=== PATIENT | male | born 1960 | race Caucasian/White ===

== ENCOUNTER 2018-08-20 20:29 | Inpatient (IN) | payer BC, OTHER ==
[2018-08-20] MEDS ORDERED: cloNIDine HCL 0.1 MG TABLET PO ONE (20:50)
[2018-08-20] MEDS ORDERED: VANCOMYCIN 1 GM in D5W (PRE-DOCKED) 1,000 MG/250 ML IVPB ONE (20:52)
[2018-08-20] MEDS ORDERED: cloNIDine HCL 0.1 MG TABLET ONE (20:55)
[2018-08-20] MEDS ORDERED: PIPERACILLIN/TAZOB 3.375 GM 3.375 GM in DEXTROSE 5%-WATER - 50 ML IVPB ONE (20:55)
[2018-08-20] MEDS ORDERED: VANCOMYCIN 1,000 MG VIAL (RESTRICTED TO ID ONLY) ONE (20:57)
[2018-08-20] MEDS ORDERED: PIPERACILLIN/TAZOBACTAM 3.375 GM VIAL IVPB ONE (20:58)
[2018-08-20 21:27] LABS: EOS % 3.3 % (0-4.5); HEMATOCRIT 36.7 % (35.4-49); HEMOGLOBIN 12.2 GM/dl (11.7-16.9); LYMPH % 18.5 % (8-40); MCH 27.8 pg (25.7-33.7); MCHC 33.1 g/dl (32.0-35.9); MEAN CELL VOLUME 83.9 fl (80-96); MEAN PLT VOLUME 8.8 fl (7.5-11.1); MONO % 8.8 % (3.8-10.2); NEUT % 68.4 % (42.8-82.8); PLATELET COUNT 230 K/MM3 (134-434); RBC 4.37 M/mm3 (4.00-5.60); RDW 14.7 % (11.9-15.9); WHITE BLOOD COUNT 9.3 K/mm3 (4.0-10.8)
--- NOTE | 2018-08-20 21:37 | PDOC ---
Documentation entered by Davon Leyva SCRIBE, acting as scribe for Madelin Mcneil MD. Madelin Mcneil MD: This documentation has been prepared by the Autumn ledesma Nirvannie, SCRIBE, under my direction and personally reviewed by me in its entirety. I confirm that the documentation accurately reflects all work, treatment, procedures, and medical decision making performed by me. History of Present Illness - General Chief Complaint: Redness To Affected Area Stated Complaint: LT 1ST TOE CELLULITIS Time Seen by Provider: 08/20/18 20:34 History Source: Patient Exam Limitations: No Limitations - History of Present Illness Initial Comments: 08/20/18 21:15 HPI: The patient is a 58 year old male, with a significant past medical history of hypertension (noncompliant with medications), CVA (16), and OCD, who presents to the emergency department with, 1 month of worsening swelling and redness to the left great toe with new onset of white discharge. As per patient, approximately a month ago he cut his left great toe at which time he kept it wrapped applying Neosporin to the affected area, however, his symptoms persisted with associated white purulent discharge. Patient also notes milder swelling, redness, and minimal discharge to the right great toe. Patient endorses a history of osteomyelitis to the left great toe requiring IV antibiotics and wound care. Patient was seen in urgent care prior to his arrival at which time he was advised to report to the ED for further evaluation. He denies any change in strength or sensation to the bilateral lower extremities. He denies any recent fevers, chills, headache or dizziness. He denies any recent nausea, vomit, diarrhea or constipation. He denies any recent chest pain or shortness of breath. He denies any recent dysuria, frequency, urgency or hematuria. 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 MEDICATIONS: reviewed ALLERGIES: As per nursing notes ROS: General: No fevers or chills, no weakness, no weight loss HEENT: No change in vision. No sore throat,. No ear pain CardioVascular: No chest pain or shortness of breath Respiratory:No cough, or wheezing. Gastrointestinal: no nausea, vomiting, diarrhea or constipation, No rectal bleeding Genitourinary: No dysuria, hematuria, or frequency Musculoskeletal: No joint or muscle pain or swelling Neurologic: No headache, vertigo, dizziness or loss of consciousness Psychiatric: nor depression Skin:+Right and left great toe swelling and redness. Endocrine: no increased thirst or abnormal weight change Allergic: no skin or latex allergy All other systems reviewed and normal Physical Exam: GENERAL: The patient is awake, alert, and fully oriented, in no acute distress. HEAD: Normal with no signs of trauma. EYES: Pupils equal, round and reactive to light, extraocular movements intact, sclera anicteric, conjunctiva clear. EXTREMITIES: Normal range of motion. NEUROLOGICAL: Normal speech, normal gait. PSYCH: Normal mood, normal affect. SKIN: Left foot: Plantar: 1cm skin opening with purulent discharge and necrotic tissue. No ascending lymphangitis, calf swelling, or calf redness. Marked swelling and erythema just above the ankle. Right foot: Erythema and swelling to the primarily to the distal and right great toe, small wound with minimal purulent discharge. No tenderness. 08/20/18 21:52 Assessment and plan: This is a 58-year-old male who has history of osteomyelitis of his left great toe. Patient job requires that he wears boots and he said that he sweats a lot and has chronic breakdown of the skin on the plantar surface of the great toes. Patient has subsequently developed bilateral cellulitis secondary to infections in the great toe. Left is greater than right. Patient's left foot is markedly swollen with erythema and no evidence of ascending lymphangitis to right foot is mildly red hot and swollen. Patient given vancomycin and Zosyn and a workup was obtained patient. Patient's EKG showed normal sinus rhythm at a rate of 90 there is evidence of LVH and septal infarct otherwise no acute pathology Patient's text x-ray was negative for any acute pathology Patient admitted to the hospital for IV antibiotics Past History - Past Medical History Allergies/Adverse Reactions: Allergies Allergy/AdvReac Type Severity Reaction Status Date / Time No Known Allergies Allergy Verified 10/11/15 00:17 Home Medications: Ambulatory Orders Paroxetine HCl 60 mg PO DAILY 10/11/15 CVA: Yes COPD: No HTN: Yes Psychiatric Problems: Yes (OCD) - Suicide/Smoking/Psychosocial Hx Smoking History: Never smoked Have you smoked in the past 12 months: No Hx Alcohol Use: No Drug/Substance Use Hx: No Substance Use Type: None *Physical Exam - Vital Signs Last Vital Signs Temp Pulse Resp BP Pulse Ox 99.2 F 90 16 211/116 H 99 08/20/18 20:33 08/20/18 20:33 08/20/18 20:33 08/20/18 20:33 08/20/18 20:33 ED Treatment Course - LABORATORY CBC & Chemistry Diagram: 08/20/18 21:05 08/20/18 21:05 *DC/Admit/Observation/Transfer Diagnosis at time of Disposition: Cellulitis of both feet - Discharge Dispostion Condition at time of disposition: Stable Decision to Admit order: Yes - Referrals - Patient Instructions - Post Discharge Activity
[2018-08-20 21:41] LABS: ALBUMIN 3.7 g/dl (3.4-5.0); ALK PHOS 79 U/L (45-117); ANION GAP 9 MMOL/L (8-16); BILIRUBIN,TOTAL 0.6 mg/dl (0.2-1); BLOOD UREA NITROGEN 21 mg/dl (7-18); CALCIUM 8.8 mg/dl (8.5-10); CHLORIDE 103 mmol/L (98-107); CO2 24 mmol/L (21-32); GLUCOSE,RANDOM 112 mg/dl (74-106); SGOT/AST 23 U/L (15-37); SGPT/ALT 19 U/L (13-61); SODIUM 136 mmol/L (136-145); TOT PROT 7.1 g/dl (6.4-8.2)
--- NOTE | 2018-08-20 22:11 | HP ---
Admitting History and Physical - Primary Care Physician PCP: None - Admission Chief Complaint: Non-healing Toe Wounds History of Present Illness: This is a 58 y/o man PMHx of HTN (non-complaint), Osteomyelitis of L- Toe. CVA ( 2016), OCD. Who presents to the ED with swelling, erythema and white discharge to L- great toe, R- great toe with new swelling and erythema. Patient has been treating it with neosporin and bandaids x 1 month. Patient reports increased pain to both toes when ambulating. Patient denies fever, chills, cough, SOB, CP , palpitations, N/V/D, constipation, dysuria. 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 History of Recent Travel: No Home Medications - Allergies Allergies/Adverse Reactions: Allergies Allergy/AdvReac Type Severity Reaction Status Date / Time No Known Allergies Allergy Verified 10/11/15 00:17 - Home Medications Home Medications: Ambulatory Orders Paroxetine HCl 60 mg PO DAILY 10/11/15 Family Disease History - Family Disease History Family Disease History: Heart Disease: Father (Stroke), CA: Mother (Renal, Lymphoma- ), Other: Sister (Asthma) Review of Systems - Review of Systems Constitutional: reports: No Symptoms Eyes: reports: No Symptoms HENT: reports: No Symptoms Neck: reports: No Symptoms Cardiovascular: reports: No Symptoms Respiratory: reports: No Symptoms Gastrointestinal: reports: No Symptoms Genitourinary: reports: No Symptoms Breasts: reports: No Symptoms Reported Musculoskeletal: reports: Extremity Pain Integumentary: reports: Erythema, Wound Neurological: reports: No Symptoms Endocrine: reports: No Symptoms Hematology/Lymphatic: reports: No Symptoms Psychiatric: reports: No Symptoms Physical Examination Vital Signs: Vital Signs Temperature 99.2 F 08/20/18 20:33 Pulse Rate 90 08/20/18 20:33 Respiratory Rate 16 08/20/18 20:33 Blood Pressure 211/116 H 08/20/18 20:33 O2 Sat by Pulse Oximetry (%) 99 08/20/18 20:33 Constitutional: Yes: Well Nourished, No Distress, Calm, Obese Eyes: Yes: WNL, Conjunctiva Clear, EOM Intact, PERRL HENT: Yes: WNL, Atraumatic, Normocephalic Neck: Yes: WNL, Supple, Trachea Midline Cardiovascular: Yes: WNL, Regular Rate and Rhythm, S1, S2 Respiratory: Yes: WNL, Regular, CTA Bilaterally Gastrointestinal: Yes: WNL, Normal Bowel Sounds, Soft, Abdomen, Obese Renal/: Yes: WNL Breast(s): Yes: WNL Extremities: Yes: Erythema Edema: Yes Edema: LLE: 2+ (pitting to left foot, great toe), RLE: 1+ (right great toe) Peripheral Pulses WNL: Yes Integumentary: Yes: Erythema (right great toe, left great toe, left foot), Pressure Ulcer (left great toe) Wound/Incision: Yes: Reddened, Other Neurological: Yes: WNL, Alert, Oriented, Cran Nerves II-XII Intact ...Motor Strength: WNL Psychiatric: Yes: WNL, Alert, Oriented Labs: CBC, BMP 08/20/18 21:05 08/20/18 21:05 Imaging - Results Chest X-ray: Image Reviewed X-ray: Pending Problem List - Problems (1) Hypertensive urgency Assessment/Plan: Likely secondary to non-compliance Clonidine given in ED with improvement Appreciate Cardiology consult Will start on ACEi and Thiazide per [facility] 8 Renal US r/o stenosis Continue cardiac monitoring Low Na Diet Monitor CBC, BMP Code(s): I16.0 - HYPERTENSIVE URGENCY (2) HTN (hypertension) Assessment/Plan: not controlled Will start on ACEi and Thiazide Monitor BMP Code(s): I10 - ESSENTIAL (PRIMARY) HYPERTENSION (3) Cellulitis of both feet Assessment/Plan: Wound culture-pending Blood culture-pending No WBC Will order ESR, CRP Vancomycin and Zosyn given in ED, will continue Appreciate ID consult Appreciate Podiatry consult Consider Vascular and Surgical consult if condition worsens Monitor CBC, BMP Monitor vitals Elevate extremity Code(s): L03.115 - CELLULITIS OF RIGHT LOWER LIMB; L03.116 - CELLULITIS OF LEFT LOWER LIMB (4) Chronic ulcer of great toe of left foot with fat layer exposed Assessment/Plan: See above Code(s): L97.522 - NON-PRS CHRONIC ULCER OTH PRT LEFT FOOT W FAT LAYER EXPOSED (5) Obsessive compulsive disorder Assessment/Plan: Continue Paxil Code(s): F42 - OBSESSIVE-COMPULSIVE DISORDER * DO NOT USE * (6) Obese Assessment/Plan: Counseled on weight reduction Code(s): E66.9 - OBESITY, UNSPECIFIED Assessment/Plan This is a 58 y/o man with a PMHx of HTN (non-compliant with meds), Osteomyelitis of L- Great Toe, OCD. Admitted to Telemetry for Hypertension Urgency, Cellulitis of Bilateral Toes for further evaluation of their emergent condition. Plan: See Problem List FEN PO fluids as tolerated Replete lytes as indicated Low Na Diet DVT ppx OOB SCDs Heparin SQ Code Status: Full Code Dispo: Requires Inpatient Care Visit type - Emergency Visit Emergency Visit: Yes ED Registration Date: 08/20/18 Care time: The patient presented to the Emergency Department on the above date and was hospitalized for further evaluation of their emergent condition. - New Patient This patient is new to me today: Yes Date on this admission: 08/20/18 - Critical Care Critical Care patient: No
[2018-08-20 23:49] VITALS: BMI 32.8
[2018-08-21] MEDS ORDERED: PIPERACILLIN/TAZOBACTAM 3.375 GM VIAL IVPB ONE ×3 (04:05→21:05)
[2018-08-21] MEDS ORDERED: DEXTROSE 5%-WATER - 50 ML IVPB ONE ×3 (04:06→21:05)
[2018-08-21] MEDS: PIPERACILLIN/TAZOB 3.375 GM 3.375 GM in DEXTROSE 5%-WATER - 50 ML IVPB SCH ×3 (04:34→21:16)
[2018-08-21] MEDS ORDERED: PIPERACILLIN/TAZOB 3.375 GM 3.375 GM in DEXTROSE 5%-WATER - 50 ML IVPB SCH (05:00)
--- NOTE | 2018-08-21 07:25 | PN ---
Progress Note, Physician Chief Complaint: No new complains History of Present Illness: 58 year old male, with a significant past medical history of hypertension ( noncompliant with medications), CVA (16), and OCD, who presents to the emergency department with, 1 month of worsening swelling and redness to the left great toe with new onset of white discharge. As per patient, approximately a month ago he cut his left great toe at which time he kept it wrapped applying Neosporin to the affected area, however, his symptoms persisted with associated white purulent discharge. - Current Medication List Current Medications: Active Medications Heparin Sodium (Porcine) (Heparin -) 5,000 unit SQ BID [facility] Hydrochlorothiazide (Hctz -) 12.5 mg PO DAILY [facility] Vancomycin HCl 1,250 mg/ (Dextrose) 250 mls @ 250 mls/2 hr IVPB Q24H [facility]; Protocol Piperacillin Sod/Tazobactam (Sod 3.375 gm/ Dextrose) 50 mls @ 100 mls/hr IVPB Q8H-IV [facility]; Protocol Piperacillin Sod/Tazobactam (Sod 3.375 gm/ Dextrose) 50 mls @ 100 mls/hr IVPB Q8H [facility] Stop: 08/21/18 13:29 Last Admin: 08/21/18 04:34 Dose: 100 mls/hr Lisinopril (Prinivil) 5 mg PO DAILY [facility] Paroxetine HCl (Paxil -) 20 mg PO TID [facility] - Objective Vital Signs: Vital Signs Temperature 97.7 F 08/21/18 06:00 Pulse Rate 78 08/21/18 06:00 Respiratory Rate 19 08/21/18 06:00 Blood Pressure 169/86 08/21/18 06:00 O2 Sat by Pulse Oximetry (%) 99 08/21/18 06:34 Middle aged man comfortable not in distress HEENT: WNL, Conjunctiva Clear, EOM Intact, PERRLA Neck: Yes: WNL, Supple, Trachea Midline Cardiovascular: L, Regular Rate and Rhythm, S1, S2 Respiratory:WNL, Regular, CTA Bilaterally Gastrointestinal: YWNL, Normal Bowel Sounds, Soft, Abdomen, Obese Extremities: No edema feet, no calf tenderness P LLE: 2+ (pitting to left foot, great toe), RLE: 1+ (right great toe), Pulses + Neurological: Yes: WNL, Alert, Oriented, Cran Nerves II-XII Intact, no gross deficit Labs: CBC,CMP WBC 9.3 K/mm3 (4.0-10.8) 08/20/18 21:05 RBC 4.37 M/mm3 (4.00-5.60) 08/20/18 21:05 Hgb 12.2 GM/dl (11.7-16.9) 08/20/18 21:05 Hct 36.7 % (35.4-49) 08/20/18 21:05 MCV 83.9 fl (80-96) 08/20/18 21:05 MCH 27.8 pg (25.7-33.7) 08/20/18 21:05 MCHC 33.1 g/dl (32.0-35.9) 08/20/18 21:05 RDW 14.7 % (11.9-15.9) 08/20/18 21:05 Plt Count 230 K/MM3 (134-434) 08/20/18 21:05 MPV 8.8 fl (7.5-11.1) 08/20/18 21:05 Absolute Neuts (auto) 6.4 K/mm3 08/20/18 21:05 Neutrophils % 68.4 % (42.8-82.8) 08/20/18 21:05 Lymphocytes % 18.5 % (8-40) 08/20/18 21:05 Monocytes % 8.8 % (3.8-10.2) 08/20/18 21:05 Eosinophils % 3.3 % (0-4.5) 08/20/18 21:05 Basophils % 1.0 % (0-2.0) 08/20/18 21:05 ESR 44 mm/hr (0-20) H 08/20/18 22:30 Sodium 136 mmol/L (136-145) 08/20/18 21:05 Potassium 4.0 mmol/L (3.5-5.1) 08/20/18 21:05 Chloride 103 mmol/L (98-107) 08/20/18 21:05 Carbon Dioxide 24 mmol/L (21-32) 08/20/18 21:05 Anion Gap 9 MMOL/L (8-16) 08/20/18 21:05 BUN 21 mg/dl (7-18) H 08/20/18 21:05 Creatinine 1.0 mg/dl (0.55-1.3) 08/20/18 21:05 Creat Clearance w eGFR 76.75 (>60) 08/20/18 21:05 Random Glucose 112 mg/dl (74-106) H 08/20/18 21:05 Lactic Acid 0.6 mmol/L (0.4-2.0) 08/20/18 21:05 Calcium 8.8 mg/dl (8.5-10) 08/20/18 21:05 Total Bilirubin 0.6 mg/dl (0.2-1) 08/20/18 21:05 AST 23 U/L (15-37) 08/20/18 21:05 ALT 19 U/L (13-61) 08/20/18 21:05 Alkaline Phosphatase 79 U/L (45-117) 08/20/18 21:05 Creatine Kinase 146 U/L (26-308) 08/20/18 21:05 Troponin I 0.03 ng/ml (0.00-0.05) 08/20/18 21:05 C-Reactive Protein 13.3 MG/DL (0.00-0.3) H 08/20/18 22:30 Total Protein 7.1 g/dl (6.4-8.2) 08/20/18 21:05 Albumin 3.7 g/dl (3.4-5.0) 08/20/18 21:05 Problem List - Problems (1) Hypertensive urgency Assessment/Plan: Due to non compliance, low salt Diet at present BP at target will optimize add Nifedipine 30 ER Daily Code(s): I16.0 - HYPERTENSIVE URGENCY (2) Cellulitis of both feet Assessment/Plan: non toxic purulent Celulitis , cultures are pending, patient has community acquired infection will switch narrow spectrum after culture result. Code(s): L03.115 - CELLULITIS OF RIGHT LOWER LIMB; L03.116 - CELLULITIS OF LEFT LOWER LIMB (3) CVA (cerebral vascular accident) Assessment/Plan: Old Optimize BP cont ASA and statin Code(s): I63.9 - CEREBRAL INFARCTION, UNSPECIFIED Qualifiers: CVA mechanism: unspecified Qualified Code(s): I63.9 - Cerebral infarction, unspecified (4) HTN (hypertension) Code(s): I10 - ESSENTIAL (PRIMARY) HYPERTENSION (5) Obese Assessment/Plan: Wt reduction as out patient Code(s): E66.9 - OBESITY, UNSPECIFIED
[2018-08-21 07:54] LABS: BASO % 0.4 % (0-2.0); EOS % 3.8 % (0-4.5); HEMATOCRIT 34.6 % (35.4-49); HEMOGLOBIN 11.4 GM/dl (11.7-16.9); LYMPH % 16.9 % (8-40); MCH 27.2 pg (25.7-33.7); MCHC 32.8 g/dl (32.0-35.9); MEAN CELL VOLUME 82.9 fl (80-96); MEAN PLT VOLUME 8.8 fl (7.5-11.1); MONO % 10.5 % (3.8-10.2); NEUT % 68.4 % (42.8-82.8); PLATELET COUNT 212 K/MM3 (134-434); RBC 4.18 M/mm3 (4.00-5.60); RDW 14.8 % (11.9-15.9); WHITE BLOOD COUNT 6.6 K/mm3 (4.0-10.8)
[2018-08-21 07:58] LABS: ANION GAP 6 MMOL/L (8-16); BLOOD UREA NITROGEN 15 mg/dl (7-18); CALCIUM 8.2 mg/dl (8.5-10); CHLORIDE 105 mmol/L (98-107); CO2 24 mmol/L (21-32); CREATININE 0.8 mg/dl (0.55-1.3); GLUCOSE,RANDOM 129 mg/dl (74-106); POTASSIUM 3.9 mmol/L (3.5-5.1); SODIUM 135 mmol/L (136-145)
[2018-08-21] MEDS: PARoxetine HCL 20 MG TABLET (FP) PO SCH ×3 (08:07→21:17)
[2018-08-21] MEDS: NIFEdipine E.R. 30 MG TABLET (FP) PO SCH (09:36)
[2018-08-21] MEDS: LISINOPRIL 5 MG TABLET (FP) PO SCH (09:36)
[2018-08-21] MEDS: HEPARIN NA (PORCINE) 5,000 UNITS/ML 1ML VIAL SQ SCH ×2 (09:36→21:17)
[2018-08-21] MEDS: HYDROCHLOROTHIAZIDE 12.5 MG CAPSULE (FP) PO SCH (09:36)
--- NOTE | 2018-08-21 10:27 | EKG ---
Test Reason : Blood Pressure : / mmHG Vent. Rate : 090 BPM Atrial Rate : 090 BPM P-R Int : 176 ms QRS Dur : 096 ms QT Int : 376 ms P-R-T Axes : -03 002 -04 degrees QTc Int : 459 ms NORMAL SINUS RHYTHM CANNOT RULE OUT SEPTAL INFARCT , AGE UNDETERMINED ABNORMAL ECG NO PREVIOUS ECGS AVAILABLE Confirmed by PRATIMA PIERRE MD ([id number]) on 08/21/2018 10:26:59 AM Referred By: DR ALMANZAR Confirmed By:PRATIMA PIERRE MD
--- NOTE | 2018-08-21 13:42 | CON.ID ---
Consult Consult Specialty:: infectious diseases Referred by:: hospitalist Reason for Consultation:: b/l wounds to both toes with swelling and non healing for more than a month - History of Present Illness Chief Complaint: non healing wounds of both toes of both legs History of Present Illness: 58 y/o man PMHx of HTN ), Osteomyelitis of L- Toe. CVA (2016), OCD. Who presents to the ED with swelling, erythema and white discharge to L- great toe, R- great toe with new swelling and erythema. Patient has been treating it with neosporin and bandaids x 1 month. Patient reports increased pain to both toes when ambulating. Patient denies fever, chills, cough, SOB, CP, palpitations, N/V /D, constipation, dysuria. 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 History of Recent Travel: No Home Medications - Allergies Allergies/Adverse Reactions: Allergies Allergy/AdvReac Type Severity Reaction Status Date / Time No Known Allergies Allergy Verified 10/11/15 00:17 - Home Medications Home Medications: Ambulatory Orders RX: Paroxetine HCl 60 mg PO DAILY 10/11/15 Family Disease History - Family Disease History Family Disease History: Heart Disease: Father (Stroke), CA: Mother (Renal, Lymphoma- ), Other: Sister (Asthma) Review of Systems - Review of Systems Constitutional: reports: No Symptoms Eyes: reports: No Symptoms HENT: reports: No Symptoms Neck: reports: No Symptoms Cardiovascular: reports: No Symptoms Respiratory: reports: No Symptoms Gastrointestinal: reports: No Symptoms Genitourinary: reports: No Symptoms Musculoskeletal: reports: Other Integumentary: reports: No Symptoms Neurological: reports: No Symptoms Endocrine: reports: No Symptoms Hematology/Lymphatic: reports: No Symptoms Psychiatric: reports: No Symptoms (b/l non healing ulcer to both great toes of both legs) Physical Exam Vital Signs: Vital Signs Temperature 98.7 F 08/21/18 09:33 Pulse Rate 83 08/21/18 09:33 Respiratory Rate 18 08/21/18 09:33 Blood Pressure 153/68 08/21/18 09:33 O2 Sat by Pulse Oximetry (%) 99 08/21/18 06:34 Constitutional: Yes: Well Nourished, No Distress, Obese Eyes: Yes: Conjunctiva Clear HENT: Yes: Atraumatic, Normocephalic Neck: Yes: Supple, Trachea Midline Cardiovascular: Yes: Regular Rate and Rhythm Respiratory: Yes: Regular, CTA Bilaterally Gastrointestinal: Yes: Normal Bowel Sounds, Soft Musculoskeletal: Yes: WNL Extremities: Yes: Other (ulcer to both 1st toes of both legs) Wound/Incision: Yes: Dressing Dry and Intact, Dressing Removed, Other (wounds looked at,toes swollen) Neurological: Yes: Alert, Oriented Psychiatric: Yes: Alert, Oriented Labs: CBC, BMP 08/21/18 07:06 08/21/18 07:06 Assessment/Plan Problem List - Problems (1) Hypertensive urgency Code(s): I16.0 - HYPERTENSIVE URGENCY (2) Cellulitis of both feet Code(s): L03.115 - CELLULITIS OF RIGHT LOWER LIMB; L03.116 - CELLULITIS OF LEFT LOWER LIMB (3) CVA (cerebral vascular accident) Code(s): I63.9 - CEREBRAL INFARCTION, UNSPECIFIED Qualifiers: CVA mechanism: unspecified Qualified Code(s): I63.9 - Cerebral infarction, unspecified (4) HTN (hypertension) Code(s): I10 - ESSENTIAL (PRIMARY) HYPERTENSION (5) Obese Code(s): E66.9 - OBESITY, UNSPECIFIED after looking at the toes i have a strong suspicion of osteo plan will order mri' await for cx reports wound care podiatry rest as per the team
--- NOTE | 2018-08-21 16:17 | CON.CARD ---
Cardiology Consult (text) - Consultation Consultation Note: cc: toe swollen and red hpi: 58 m hx htn, hld, cva, here with swollen and red toe. Pt has no other complaints. No cp sob palps dizzy loc pnd orthopnea, le edema. Noncompliant with meds and f/u and had sbp 200s in er here. Now bp improved with po meds and getting abx for toe infection. pmh: per hpi psh: none social: no tob fam: no premature cad, scd ros: per hpi; all others normal meds: Vital Signs Period Temp Pulse Resp BP Sys/Steward Pulse Ox Last 24 Hr 97.3 F-99.3 F 77-90 16-19 125-211/59-116 96-99 nad no jvd rrr s1s2 no mrg cta bl nl eff aaox3 no le e/c/c abd nt nd pos bs no jaundice diaphoresis pos dp pt no carotid bruit Laboratory Last Values WBC 6.6 K/mm3 (4.0-10.8) 08/21/18 07:06 RBC 4.18 M/mm3 (4.00-5.60) 08/21/18 07:06 Hgb 11.4 GM/dl (11.7-16.9) L 08/21/18 07:06 Hct 34.6 % (35.4-49) L 08/21/18 07:06 MCV 82.9 fl (80-96) 08/21/18 07:06 MCH 27.2 pg (25.7-33.7) 08/21/18 07:06 MCHC 32.8 g/dl (32.0-35.9) 08/21/18 07:06 RDW 14.8 % (11.9-15.9) 08/21/18 07:06 Plt Count 212 K/MM3 (134-434) 08/21/18 07:06 MPV 8.8 fl (7.5-11.1) 08/21/18 07:06 Absolute Neuts (auto) 4.5 K/mm3 08/21/18 07:06 Neutrophils % 68.4 % (42.8-82.8) 08/21/18 07:06 Lymphocytes % 16.9 % (8-40) 08/21/18 07:06 Monocytes % 10.5 % (3.8-10.2) H 08/21/18 07:06 Eosinophils % 3.8 % (0-4.5) 08/21/18 07:06 Basophils % 0.4 % (0-2.0) 08/21/18 07:06 ESR 44 mm/hr (0-20) H 08/20/18 22:30 Sodium 135 mmol/L (136-145) L 08/21/18 07:06 Potassium 3.9 mmol/L (3.5-5.1) 08/21/18 07:06 Chloride 105 mmol/L (98-107) 08/21/18 07:06 Carbon Dioxide 24 mmol/L (21-32) 08/21/18 07:06 Anion Gap 6 MMOL/L (8-16) L 08/21/18 07:06 BUN 15 mg/dl (7-18) 08/21/18 07:06 Creatinine 0.8 mg/dl (0.55-1.3) 08/21/18 07:06 Creat Clearance w eGFR 99.29 (>60) 08/21/18 07:06 Random Glucose 129 mg/dl (74-106) H 08/21/18 07:06 Lactic Acid 0.6 mmol/L (0.4-2.0) 08/20/18 21:05 Calcium 8.2 mg/dl (8.5-10) L 08/21/18 07:06 Total Bilirubin 0.6 mg/dl (0.2-1) 08/20/18 21:05 AST 23 U/L (15-37) 08/20/18 21:05 ALT 19 U/L (13-61) 08/20/18 21:05 Alkaline Phosphatase 79 U/L (45-117) 08/20/18 21:05 Creatine Kinase 146 U/L (26-308) 08/20/18 21:05 Troponin I 0.03 ng/ml (0.00-0.05) 08/20/18 21:05 C-Reactive Protein 13.3 MG/DL (0.00-0.3) H 08/20/18 22:30 Total Protein 7.1 g/dl (6.4-8.2) 08/20/18 21:05 Albumin 3.7 g/dl (3.4-5.0) 08/20/18 21:05 Random Vancomycin 4.5 ug/ml (18-26) L 08/21/18 07:06 tele: sr ecg: sr nl intervals no ischemic changes cxr: clear lungs echo 10/2015: mod lve, mild lvh, mild dec lvef, global hk, nl rv, carlos, mild mr, mild ao root dil a/p: 58 m hx htn, hld, cva, here with swollen and red toe. toe infection: -abx per ID htn: -elevated on admit 2/2 med noncompliance -after starting po meds, bp much improved, cont same and monitor bp. Can titrate up prn. -prior echo showed signs of htn heart dz, would repeat echo after bp controlled , can be done as outpt cva: -found here 2015, no f/u since -should be on asa and statin, along with bp control as above hld: -start statin
[2018-08-21] MEDS: ATORVASTATIN CA 20 MG TABLET (FP) PO SCH (21:17)
[2018-08-21] MEDS ORDERED: VANCOMYCIN HCL 1,250 MG in DEXTROSE 5%-WATER - 250 ML IVPB SCH (22:00)
[2018-08-22] MEDS ORDERED: DEXTROSE 5%-WATER - 50 ML IVPB ONE ×3 (04:02→20:45)
[2018-08-22] MEDS ORDERED: PIPERACILLIN/TAZOBACTAM 3.375 GM VIAL IVPB ONE ×3 (04:02→20:45)
[2018-08-22] MEDS: PIPERACILLIN/TAZOB 3.375 GM 3.375 GM in DEXTROSE 5%-WATER - 50 ML IVPB SCH ×3 (04:06→21:13)
[2018-08-22] MEDS: PARoxetine HCL 20 MG TABLET (FP) PO SCH ×3 (06:02→21:52)
[2018-08-22 08:27] LABS: BASO % 0.6 % (0-2.0); EOS % 4.2 % (0-4.5); HEMATOCRIT 37.5 % (35.4-49); HEMOGLOBIN 12.6 GM/dl (11.7-16.9); LYMPH % 17.6 % (8-40); MCHC 33.5 g/dl (32.0-35.9); MEAN CELL VOLUME 83.7 fl (80-96); MEAN PLT VOLUME 8.4 fl (7.5-11.1); MONO % 9.4 % (3.8-10.2); NEUT % 68.2 % (42.8-82.8); PLATELET COUNT 249 K/MM3 (134-434); RBC 4.48 M/mm3 (4.00-5.60); RDW 14.4 % (11.9-15.9); WHITE BLOOD COUNT 6.4 K/mm3 (4.0-10.8)
[2018-08-22 08:53] LABS: ALBUMIN 3.5 g/dl (3.4-5.0); ALK PHOS 77 U/L (45-117); ANION GAP 7 MMOL/L (8-16); BILIRUBIN,TOTAL 0.6 mg/dl (0.2-1); BLOOD UREA NITROGEN 12 mg/dl (7-18); CALCIUM 8.8 mg/dl (8.5-10); CHLORIDE 103 mmol/L (98-107); CO2 25 mmol/L (21-32); CREATININE 0.7 mg/dl (0.55-1.3); GLUCOSE,RANDOM 124 mg/dl (74-106); POTASSIUM 3.8 mmol/L (3.5-5.1); SGOT/AST 18 U/L (15-37); SGPT/ALT 18 U/L (13-61); SODIUM 135 mmol/L (136-145)
[2018-08-22] MEDS: HEPARIN NA (PORCINE) 5,000 UNITS/ML 1ML VIAL SQ SCH ×2 (09:02→21:52)
[2018-08-22] MEDS: LISINOPRIL 5 MG TABLET (FP) PO SCH (09:02)
[2018-08-22] MEDS: NIFEdipine E.R. 30 MG TABLET (FP) PO SCH (09:03)
[2018-08-22] MEDS: HYDROCHLOROTHIAZIDE 12.5 MG CAPSULE (FP) PO SCH (09:03)
--- NOTE | 2018-08-22 10:04 | PN ---
Physical Exam: SUBJECTIVE: Patient seen and examined, left 1st toe, no redness or pain on exam. swelling improving. OBJECTIVE: Vital Signs Period Temp Pulse Resp BP Sys/Steward Pulse Ox Last 24 Hr 97.3 F-98.9 F 72-80 18-18 125-160/59-82 96-100 GENERAL: The patient is awake, alert, and fully oriented, in no acute distress. HEAD: Normal with no signs of trauma. EYES: PERRL, extraocular movements intact, sclera anicteric, conjunctiva clear. No ptosis. ENT: Ears normal, nares patent, oropharynx clear without exudates, moist mucous membranes. NECK: Trachea midline, full range of motion, supple. LUNGS: Breath sounds equal, clear to auscultation bilaterally, no wheezes, no crackles, no accessory muscle use. HEART: Regular rate and rhythm, S1, S2 without murmur, rub or gallop. ABDOMEN: Soft, nontender, nondistended, normoactive bowel sounds, no guarding, no rebound, no hepatosplenomegaly, no masses. EXTREMITIES: 2+ pulses, warm, well-perfused, no edema. NEUROLOGICAL: Cranial nerves II through XII grossly intact. Normal speech, gait not observed. PSYCH: Normal mood, normal affect. SKIN: Warm, dry, normal turgor, no rashes or lesions noted Laboratory Results - last 24 hr 08/21/18 08/22/18 08/22/18 07:06 07:45 07:45 WBC 6.4 RBC 4.48 Hgb 12.6 Hct 37.5 MCV 83.7 MCH 28.0 MCHC 33.5 RDW 14.4 Plt Count 249 MPV 8.4 Absolute Neuts (auto) 4.4 Neutrophils % 68.2 Lymphocytes % 17.6 Monocytes % 9.4 Eosinophils % 4.2 Basophils % 0.6 Sodium 135 L Potassium 3.8 Chloride 103 Carbon Dioxide 25 Anion Gap 7 L BUN 12 Creatinine 0.7 Creat Clearance w eGFR 115.83 Random Glucose 124 H Calcium 8.8 Total Bilirubin 0.6 AST 18 ALT 18 Alkaline Phosphatase 77 Total Protein 7.0 Albumin 3.5 Random Vancomycin 4.5 L Active Medications Generic Name Dose Route Start Last Admin Trade Name Freq PRN Reason Stop Dose Admin Atorvastatin Calcium 20 mg 08/21/18 22:00 08/21/18 21:17 Lipitor - PO 20 mg HS [facility] Administration Heparin Sodium (Porcine) 5,000 unit 08/21/18 10:00 08/22/18 09:02 Heparin - SQ 5,000 unit BID [facility] Administration Hydrochlorothiazide 12.5 mg 08/21/18 10:00 08/22/18 09:03 Hctz - PO 12.5 mg DAILY [facility] Administration Vancomycin HCl 1,250 mg/ 250 mls @ 250 mls/2 hr 08/21/18 22:00 Dextrose IVPB Q24H [facility] Protocol Piperacillin Sod/Tazobactam 50 mls @ 100 mls/hr 08/21/18 21:00 08/22/18 04:06 Sod 3.375 gm/ Dextrose IVPB 100 mls/hr Q8H [facility] Administration Protocol Lisinopril 5 mg 08/21/18 10:00 08/22/18 09:02 Prinivil PO 5 mg DAILY [facility] Administration Nifedipine 30 mg 08/21/18 10:00 08/22/18 09:03 Procardia Xl - PO 30 mg DAILY [facility] Administration Paroxetine HCl 20 mg 08/21/18 08:15 08/22/18 06:02 Paxil - PO 20 mg TID [facility]OT Administration ASSESSMENT/PLAN: Maxwell Arteaga is a 58 yr old M, medical condition HTN, (non-complaint), Osteomyelitis of L- Toe. CVA (2016), OCD admitted for #Left toe cellulitis -IV Vanc, zosyn -ID following -Blood cx no growth -wound cx staphy #HTN-improving -on HCTZ, Lisinopril, Nifedpine -low sodium diet -Cardio note appreciated Full Code Dispo: requires inpatient treatment Visit type - Emergency Visit Emergency Visit: Yes ED Registration Date: 08/20/18 Care time: The patient presented to the Emergency Department on the above date and was hospitalized for further evaluation of their emergent condition. - New Patient This patient is new to me today: Yes Date on this admission: 08/22/18 - Critical Care Critical Care patient: No
--- NOTE | 2018-08-22 11:03 | CONSULT ---
Consult Consult Specialty:: Podiatry Reason for Consultation:: OM left big toe. - History of Present Illness Chief Complaint: Wound left big toe History of Present Illness: Chronic wounds b/l big toes. 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 History of Recent Travel: No Home Medications - Allergies Allergies/Adverse Reactions: Allergies Allergy/AdvReac Type Severity Reaction Status Date / Time No Known Allergies Allergy Verified 10/11/15 00:17 - Home Medications Home Medications: Ambulatory Orders Paroxetine HCl 60 mg PO DAILY 10/11/15 Family Disease History - Family Disease History Family Disease History: Heart Disease: Father (Stroke), CA: Mother (Renal, Lymphoma- ), Other: Sister (Asthma) Physical Exam Vital Signs: Vital Signs Temperature 98.2 F 08/22/18 06:00 Pulse Rate 72 08/22/18 06:00 Respiratory Rate 18 08/22/18 06:00 Blood Pressure 140/73 08/22/18 06:00 O2 Sat by Pulse Oximetry (%) 99 08/22/18 06:00 Extremities: Yes: Other (cellulits b/l feet, left worse than right, +drainage left big toe, r/o om) Labs: CBC, BMP 08/22/18 07:45 08/22/18 07:45 Assessment/Plan om? cellulitis b/l Santyl to left foot wound. Awaiting MRI. Vascular consult. Will follow.
[2018-08-22] MEDS ORDERED: COLLAGENASE CLOSTRIDIUM HIST. 30 GRAMS TUBE TP SCH (11:15)
[2018-08-22] MEDS ORDERED: PT OWN MED DRAWER 7, Y5N ONE (17:13)
[2018-08-22] MEDS: ATORVASTATIN CA 20 MG TABLET (FP) PO SCH (21:52)
[2018-08-23] MEDS ORDERED: PIPERACILLIN/TAZOBACTAM 3.375 GM VIAL IVPB ONE ×3 (02:47→20:31)
[2018-08-23] MEDS ORDERED: DEXTROSE 5%-WATER - 50 ML IVPB ONE ×3 (02:48→20:31)
[2018-08-23] MEDS: PIPERACILLIN/TAZOB 3.375 GM 3.375 GM in DEXTROSE 5%-WATER - 50 ML IVPB SCH ×3 (04:49→20:50)
[2018-08-23] MEDS: PARoxetine HCL 20 MG TABLET (FP) PO SCH ×3 (07:06→21:33)
[2018-08-23] MEDS ORDERED: PT OWN MED DRAWER 7, Y5N ONE (09:23)
[2018-08-23 09:29] LABS: BASO % 0.7 % (0-2.0); EOS % 4.4 % (0-4.5); HEMOGLOBIN 13.9 GM/dl (11.7-16.9); LYMPH % 20.1 % (8-40); MCH 27.5 pg (25.7-33.7); MEAN CELL VOLUME 83.2 fl (80-96); MEAN PLT VOLUME 8.6 fl (7.5-11.1); MONO % 10.4 % (3.8-10.2); NEUT % 64.4 % (42.8-82.8); PLATELET COUNT 302 K/MM3 (134-434); RBC 5.04 M/mm3 (4.00-5.60); RDW 14.4 % (11.9-15.9); WHITE BLOOD COUNT 5.2 K/mm3 (4.0-10.8)
[2018-08-23 09:36] LABS: ALBUMIN 3.6 g/dl (3.4-5.0); ALK PHOS 84 U/L (45-117); ANION GAP 11 MMOL/L (8-16); BILIRUBIN,TOTAL 0.7 mg/dl (0.2-1); BLOOD UREA NITROGEN 11 mg/dl (7-18); CHLORIDE 100 mmol/L (98-107); CO2 25 mmol/L (21-32); CREATININE 0.9 mg/dl (0.55-1.3); GLUCOSE,RANDOM 113 mg/dl (74-106); POTASSIUM 4.1 mmol/L (3.5-5.1); SGOT/AST 19 U/L (15-37); SGPT/ALT 21 U/L (13-61); SODIUM 136 mmol/L (136-145); TOT PROT 7.3 g/dl (6.4-8.2)
[2018-08-23] MEDS: NIFEdipine E.R. 30 MG TABLET (FP) PO SCH (10:15)
[2018-08-23] MEDS: HYDROCHLOROTHIAZIDE 12.5 MG CAPSULE (FP) PO SCH (10:20)
[2018-08-23] MEDS: LISINOPRIL 5 MG TABLET (FP) PO SCH (10:20)
[2018-08-23] MEDS: HEPARIN NA (PORCINE) 5,000 UNITS/ML 1ML VIAL SQ SCH ×2 (10:20→21:33)
[2018-08-23] MEDS: COLLAGENASE CLOSTRIDIUM HIST. 30 GRAMS TUBE TP SCH (10:41)
[2018-08-23] MEDS ORDERED: NIFEdipine E.R. 30 MG TABLET (FP) PO SCH (11:06)
--- NOTE | 2018-08-23 11:07 | PN ---
Progress Note, Physician Chief Complaint: No new complains History of Present Illness: 58 year old male, with a significant past medical history of hypertension ( noncompliant with medications), CVA (16), and OCD, who presents to the emergency department with, 1 month of worsening swelling and redness to the left great toe with new onset of white discharge. As per patient, approximately a month ago he cut his left great toe at which time he kept it wrapped applying Neosporin to the affected area, however, his symptoms persisted with associated white purulent discharge. - Current Medication List Current Medications: Active Medications Atorvastatin Calcium (Lipitor -) 20 mg PO HS [facility] Last Admin: 08/22/18 21:52 Dose: 20 mg Collagenase (Santyl -) 1 applic TP DAILY [facility]; Protocol Last Admin: 08/23/18 10:41 Dose: 1 applic Heparin Sodium (Porcine) (Heparin -) 5,000 unit SQ BID [facility] Last Admin: 08/23/18 10:20 Dose: 5,000 unit Hydrochlorothiazide (Hctz -) 12.5 mg PO DAILY [facility] Last Admin: 08/23/18 10:20 Dose: 12.5 mg Vancomycin HCl 1,250 mg/ (Dextrose) 250 mls @ 250 mls/2 hr IVPB Q24H [facility]; Protocol Piperacillin Sod/Tazobactam (Sod 3.375 gm/ Dextrose) 50 mls @ 100 mls/hr IVPB Q8H [facility]; Protocol Last Admin: 08/23/18 04:49 Dose: 100 mls/hr Lisinopril (Prinivil) 5 mg PO DAILY [facility] Last Admin: 08/23/18 10:20 Dose: 5 mg Nifedipine (Procardia Xl -) 30 mg PO DAILY [facility] Last Admin: 08/23/18 10:15 Dose: 30 mg Paroxetine HCl (Paxil -) 20 mg PO TID [facility] Last Admin: 08/23/18 07:06 Dose: 20 mg - Objective Vital Signs: Vital Signs Temperature 98.8 F 08/23/18 10:00 Pulse Rate 74 08/23/18 10:00 Respiratory Rate 18 08/23/18 10:00 Blood Pressure 151/82 08/23/18 10:00 O2 Sat by Pulse Oximetry (%) 100 08/23/18 05:00 Middle aged man comfortable not in distress HEENT: WNL, Conjunctiva Clear, EOM Intact, PERRLA Neck: Yes: WNL, Supple, Trachea Midline Cardiovascular: L, Regular Rate and Rhythm, S1, S2 Respiratory:WNL, Regular, CTA Bilaterally Gastrointestinal: YWNL, Normal Bowel Sounds, Soft, Abdomen, Obese Extremities: No edema feet, no calf tenderness P LLE: 2+ (pitting to left foot, great toe), RLE: 1+ (right great toe), Pulses + Neurological: Yes: WNL, Alert, Oriented, Cran Nerves II-XII Intact, no gross deficit Labs: CBC, BMP 08/23/18 06:30 08/23/18 06:30 Microbiology 08/20/18 21:05 Blood Culture - Preliminary Blood - Peripheral Venous NO GROWTH OBTAINED AFTER 48 HOURS, INCUBATION TO CONTINUE FOR 3 DAYS. 08/20/18 21:05 Blood Culture - Preliminary Blood - Peripheral Venous NO GROWTH OBTAINED AFTER 48 HOURS, INCUBATION TO CONTINUE FOR 3 DAYS. 08/20/18 21:00 Gram Stain - Final Toe - Right Hallux Wound Culture - Preliminary Non Lactose Fermenting Gnb Group D Strep Or Entero Coccus Alpha Hemolytic Streptococcus Staphylococcus Coagulase Neg 08/20/18 21:00 Gram Stain - Final Toe - Left Hallux Wound Culture - Preliminary Staphylococcus Coagulase Neg - ....Imaging Other: Report Reviewed Problem List - Problems (1) Hypertensive urgency Assessment/Plan: Due to non compliance, low salt Diet at present BP at target will optimize increase Nifedipine 60 ER Daily Code(s): I16.0 - HYPERTENSIVE URGENCY (2) Cellulitis of both feet Assessment/Plan: non toxic purulent Celulitis , cultures grew polymicrobial evaluted by Podiatry and ID , MRI ? OM , patient has community acquired infection will switch narrow spectrum after final culture result available. Code(s): L03.115 - CELLULITIS OF RIGHT LOWER LIMB; L03.116 - CELLULITIS OF LEFT LOWER LIMB (3) CVA (cerebral vascular accident) Assessment/Plan: Old Optimize BP cont ASA and statin Code(s): I63.9 - CEREBRAL INFARCTION, UNSPECIFIED Qualifiers: CVA mechanism: unspecified Qualified Code(s): I63.9 - Cerebral infarction, unspecified (4) HTN (hypertension) Assessment/Plan: Well controlled on current meds Code(s): I10 - ESSENTIAL (PRIMARY) HYPERTENSION (5) Obese Assessment/Plan: Wt reduction as out patient Code(s): E66.9 - OBESITY, UNSPECIFIED
--- NOTE | 2018-08-23 11:17 | PN ---
Progress Note, Physician History of Present Illness: patient doing well no issues says he feels much better - Current Medication List Current Medications: Active Medications Atorvastatin Calcium (Lipitor -) 20 mg PO HS [facility] Last Admin: 08/22/18 21:52 Dose: 20 mg Collagenase (Santyl -) 1 applic TP DAILY [facility]; Protocol Last Admin: 08/23/18 10:41 Dose: 1 applic Heparin Sodium (Porcine) (Heparin -) 5,000 unit SQ BID [facility] Last Admin: 08/23/18 10:20 Dose: 5,000 unit Hydrochlorothiazide (Hctz -) 12.5 mg PO DAILY [facility] Last Admin: 08/23/18 10:20 Dose: 12.5 mg Vancomycin HCl 1,250 mg/ (Dextrose) 250 mls @ 250 mls/2 hr IVPB Q24H [facility]; Protocol Piperacillin Sod/Tazobactam (Sod 3.375 gm/ Dextrose) 50 mls @ 100 mls/hr IVPB Q8H [facility]; Protocol Last Admin: 08/23/18 04:49 Dose: 100 mls/hr Lisinopril (Prinivil) 5 mg PO DAILY [facility] Last Admin: 08/23/18 10:20 Dose: 5 mg Nifedipine (Procardia Xl -) 60 mg PO DAILY [facility] Paroxetine HCl (Paxil -) 20 mg PO TID [facility] Last Admin: 08/23/18 07:06 Dose: 20 mg - Objective Vital Signs: Vital Signs Temperature 98.8 F 08/23/18 10:00 Pulse Rate 74 08/23/18 10:00 Respiratory Rate 18 08/23/18 10:00 Blood Pressure 151/82 08/23/18 10:00 O2 Sat by Pulse Oximetry (%) 100 08/23/18 05:00 Constitutional: Yes: No Distress, Calm Cardiovascular: Yes: Regular Rate and Rhythm Respiratory: Yes: Regular, CTA Bilaterally Gastrointestinal: Yes: Normal Bowel Sounds, Soft Musculoskeletal: Yes: WNL Extremities: Yes: Other Wound/Incision: Yes: Dressing Dry and Intact Neurological: Yes: Alert, Oriented Psychiatric: Yes: Alert, Oriented Labs: CBC, BMP 08/23/18 06:30 08/23/18 06:30 Assessment/Plan patients imaging studies showing osteo of the foot we will wait till all the organisms are identified once we have that then will decide further plan still awaiting the sensitivities
[2018-08-23] MEDS ORDERED: NIFEdipine E.R. 30 MG TABLET (FP) PO ONE (14:15)
[2018-08-23] MEDS: ATORVASTATIN CA 20 MG TABLET (FP) PO SCH (21:33)
--- NOTE | 2018-08-23 22:02 | PN ---
Physical Exam: SUBJECTIVE: Patient seen and examined at bedside. Says the pain in his left great toe is better, swelling of foot is better. OBJECTIVE: Vital Signs Period Temp Pulse Resp BP Sys/Steward Pulse Ox Last 24 Hr 97.9 F-98.8 F 74-81 18-20 151-183/71-89 100-100 GENERAL: The patient is awake, alert, and fully oriented, in no acute distress. LUNGS: Breath sounds equal, clear to auscultation bilaterally HEART: Regular rate and rhythm, S1, S2 ABDOMEN: Soft, nontender, nondistended RLE: Right great toe ulcer on plantar surface, dry wound bed LLE: Left great toe ulcer on plantar surface, dry wound bed; great toe swollen, no erythema, no tenderness NEUROLOGICAL: Cranial nerves II through XII grossly intact. Normal speech, gait not observed. Laboratory Results - last 24 hr 08/23/18 08/23/18 06:30 06:30 WBC 5.2 RBC 5.04 Hgb 13.9 Hct 42.0 MCV 83.2 MCH 27.5 MCHC 33.0 RDW 14.4 Plt Count 302 D MPV 8.6 Absolute Neuts (auto) 3.5 Neutrophils % 64.4 Lymphocytes % 20.1 Monocytes % 10.4 H Eosinophils % 4.4 Basophils % 0.7 Sodium 136 Potassium 4.1 Chloride 100 Carbon Dioxide 25 Anion Gap 11 BUN 11 Creatinine 0.9 Creat Clearance w eGFR 86.67 Random Glucose 113 H Calcium 9.0 Total Bilirubin 0.7 AST 19 ALT 21 Alkaline Phosphatase 84 Total Protein 7.3 Albumin 3.6 Active Medications Generic Name Dose Route Start Last Admin Trade Name Adan PRN Reason Stop Dose Admin Atorvastatin Calcium 20 mg 08/21/18 22:00 08/23/18 21:33 Lipitor - PO 20 mg HS SCOT Administration Collagenase 1 applic 08/23/18 11:19 08/23/18 10:41 Santyl - TP 1 applic DAILY [facility] Administration Protocol Heparin Sodium (Porcine) 5,000 unit 08/21/18 10:00 08/23/18 21:33 Heparin - SQ 5,000 unit BID [facility]OT Administration Hydrochlorothiazide 12.5 mg 08/21/18 10:00 08/23/18 10:20 Hctz - PO 12.5 mg DAILY [facility] Administration Vancomycin HCl 1,250 mg/ 250 mls @ 250 mls/2 hr 08/21/18 22:00 Dextrose IVPB Q24H [facility] Protocol Piperacillin Sod/Tazobactam 50 mls @ 100 mls/hr 08/21/18 21:00 08/23/18 20:50 Sod 3.375 gm/ Dextrose IVPB 100 mls/hr Q8H [facility] Administration Protocol Lisinopril 5 mg 08/21/18 10:00 08/23/18 10:20 Prinivil PO 5 mg DAILY [facility]OT Administration Nifedipine 60 mg 08/24/18 10:00 Procardia Xl - PO DAILY [facility] Paroxetine HCl 20 mg 08/21/18 08:15 08/23/18 21:33 Paxil - PO 20 mg TID SCOT Administration Microbiology 08/20/18 21:00 Toe - Right Hallux Gram Stain - Final 08/20/18 21:00 Toe - Right Hallux Wound Culture - Preliminary Non Lactose Fermenting Gnb Strep Agalactiae Group B Alpha Hemolytic Streptococcus Staphylococcus Coagulase Neg Group D Strep Or Entero Coccus 08/20/18 21:05 Blood - Peripheral Venous Blood Culture - Preliminary NO GROWTH OBTAINED AFTER 72 HOURS, INCUBATION TO CONTINUE FOR 2 DAYS. 08/20/18 21:05 Blood - Peripheral Venous Blood Culture - Preliminary NO GROWTH OBTAINED AFTER 72 HOURS, INCUBATION TO CONTINUE FOR 2 DAYS. 08/20/18 21:00 Toe - Left Hallux Gram Stain - Final 08/20/18 21:00 Toe - Left Hallux Wound Culture - Final Staphylococcus Coagulase Neg ASSESSMENT/PLAN 58 year-old male with a PMH significant for HTN, CVA (2016), OCD, and chronic great toe ulcers with osteomyelitis. Osteomyelitis left hallux with possible abscess --left hallux first diagnosed with osteo 10/2015, treated with ceftriaxone x 6 weeks --08/22 MRI: osteomyelitits of the distal great toe/soft tissue swelling --08/24 CT: several small fluid collections suspicious for developing abscess --polymicrobial wound culture; blood cultures NGTD --being followed by ID: continue Zosyn; will need PICC line and long-term antibiotics --seen and evaluated by vascular: no intervention, defer to podiatry --being followed by podiatry: pending further surgical plan Osteomyelitis right hallux --08/22 MRI: cellulitis and bone edema suspicious for osteo --continue Zosyn CVA --had not been taking ASA and statin at home --statin has been started; hold starting ASA until surgical plan finalized Hypertensive urgency --poorly controlled, non-compliant --BP 211/116 on admission --slightly improved on increased nifedipine, continue 60mg daily --increase lisinopril to 10mg daily --continue HCTZ OCD --continue Paxil FEN Fluids: PO intake adequate Electrolytes: replete as indicated Nutrition: low sodum DVT prophylaxis: subq heparin Dispo: continues to require inpatient care. Full code. Visit type - Emergency Visit Emergency Visit: Yes ED Registration Date: 08/22/18 Care time: The patient presented to the Emergency Department on the above date and was hospitalized for further evaluation of their emergent condition. - New Patient This patient is new to me today: Yes Date on this admission: 08/24/18 - Critical Care Critical Care patient: No
[2018-08-24] MEDS: PIPERACILLIN/TAZOB 3.375 GM 3.375 GM in DEXTROSE 5%-WATER - 50 ML IVPB SCH ×3 (05:32→21:32)
[2018-08-24] MEDS: PARoxetine HCL 20 MG TABLET (FP) PO SCH ×3 (06:26→21:32)
[2018-08-24] MEDS ORDERED: PT OWN MED DRAWER 7, Y5N ONE (09:46)
--- NOTE | 2018-08-24 09:57 | PN ---
Progress Note, Physician History of Present Illness: stable starting to feel better podiatry note noted no issues - Current Medication List Current Medications: Active Medications Atorvastatin Calcium (Lipitor -) 20 mg PO HS [facility] Last Admin: 08/23/18 21:33 Dose: 20 mg Collagenase (Santyl -) 1 applic TP DAILY [facility]; Protocol Last Admin: 08/23/18 10:41 Dose: 1 applic Heparin Sodium (Porcine) (Heparin -) 5,000 unit SQ BID [facility] Last Admin: 08/23/18 21:33 Dose: 5,000 unit Hydrochlorothiazide (Hctz -) 12.5 mg PO DAILY [facility] Last Admin: 08/23/18 10:20 Dose: 12.5 mg Vancomycin HCl 1,250 mg/ (Dextrose) 250 mls @ 250 mls/2 hr IVPB Q24H [facility]; Protocol Piperacillin Sod/Tazobactam (Sod 3.375 gm/ Dextrose) 50 mls @ 100 mls/hr IVPB Q8H [facility]; Protocol Last Admin: 08/24/18 05:32 Dose: 100 mls/hr Lisinopril (Prinivil) 5 mg PO DAILY [facility] Last Admin: 08/23/18 10:20 Dose: 5 mg Nifedipine (Procardia Xl -) 60 mg PO DAILY [facility] Paroxetine HCl (Paxil -) 20 mg PO TID [facility] Last Admin: 08/24/18 06:26 Dose: 20 mg - Objective Vital Signs: Vital Signs Temperature 98.3 F 08/24/18 06:06 Pulse Rate 96 H 08/24/18 06:06 Respiratory Rate 19 08/24/18 06:06 Blood Pressure 147/80 08/24/18 06:06 O2 Sat by Pulse Oximetry (%) 99 08/24/18 06:06 Constitutional: Yes: No Distress, Calm, Obese Cardiovascular: Yes: Regular Rate and Rhythm Respiratory: Yes: Regular, CTA Bilaterally Gastrointestinal: Yes: Normal Bowel Sounds, Soft Musculoskeletal: Yes: WNL Extremities: Yes: Other Wound/Incision: Yes: Dressing Dry and Intact Neurological: Yes: Alert, Oriented Psychiatric: Yes: Alert, Oriented Labs: CBC, BMP 08/23/18 06:30 08/23/18 06:30 Assessment/Plan Problem List - Problems (1) Hypertensive urgency Code(s): I16.0 - HYPERTENSIVE URGENCY (2) Cellulitis of both feet Code(s): L03.115 - CELLULITIS OF RIGHT LOWER LIMB; L03.116 - CELLULITIS OF LEFT LOWER LIMB (3) CVA (cerebral vascular accident) Code(s): I63.9 - CEREBRAL INFARCTION, UNSPECIFIED Qualifiers: CVA mechanism: unspecified Qualified Code(s): I63.9 - Cerebral infarction, unspecified (4) HTN (hypertension) Code(s): I10 - ESSENTIAL (PRIMARY) HYPERTENSION (5) Obese Code(s): E66.9 - OBESITY, UNSPECIFIED plan continue current abx await for mri rest as per the team once we have that will make the final plan
[2018-08-24] MEDS: COLLAGENASE CLOSTRIDIUM HIST. 30 GRAMS TUBE TP SCH (10:02)
[2018-08-24] MEDS: NIFEdipine E.R 60 MG TABLET (UD) PO SCH (10:02)
[2018-08-24] MEDS: LISINOPRIL 5 MG TABLET (FP) PO SCH (10:02)
[2018-08-24] MEDS: HYDROCHLOROTHIAZIDE 12.5 MG CAPSULE (FP) PO SCH (10:02)
[2018-08-24] MEDS: HEPARIN NA (PORCINE) 5,000 UNITS/ML 1ML VIAL SQ SCH ×2 (10:02→21:32)
[2018-08-24] MEDS ORDERED: DEXTROSE 5%-WATER - 50 ML IVPB ONE ×2 (12:41→21:16)
[2018-08-24] MEDS ORDERED: PIPERACILLIN/TAZOBACTAM 3.375 GM VIAL IVPB ONE ×2 (12:41→21:16)
--- NOTE | 2018-08-24 14:33 | CONSULT ---
- Consultation REQUESTING PROVIDER: CONSULT REQUEST: We have been asked to surgically evaluate this patient for Left great toe wound. PCP:Cynthia Bernal HISTORY OF PRESENT ILLNESS: The patient is a 58 yo male who came to the ER on Friday because of swelling in his left toe/foot. He has a chronic wound to his plantar surface of this toe. The patient was treated by Dr. Salcido in 2016 for his toe infection with IV antibiotics x 6 weeks. His toe improved but over the past years has opened and healed. 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 His right great toe also has a chronic ulcer. He denies any pain, no fevers,CP or SOB. NO diabetes or numbness or tingling in his extremities. PMHx: depression PSHx: Denies Home Medications Medication Instructions Recorded Paroxetine HCl 60 mg PO DAILY 10/11/15 Allergies Allergy/AdvReac Type Severity Reaction Status Date / Time No Known Allergies Allergy Verified 10/11/15 00:17 REVIEW OF SYSTEMS: CONSTITUTIONAL: Absent: fever, chills CARDIOVASCULAR: Absent: chest pain, syncope, palpitations RESPIRATORY: Absent: cough, shortness of breath GASTROINTESTINAL: Absent: abdominal pain, abdominal distension, nausea, vomiting MUSCULOSKELETAL: Absent: myalgia, arthralgia HEMATOLOGIC/IMMUNOLOGIC: Absent: easy bleeding, easy bruising NEUROLOGIC: Absent: headache, focal weakness, paresthesias PHYSICAL EXAM: GEN: A&0x3, NAD LUNGS: Clear to auscultation bilat anteriorly. No wheezes, and no crackles. HEART: Regular rate and rhythm. ABDOMEN: Soft, nontender, not distended, normoactive bowel sounds, no guarding. LOWER EXTREMITIES: 2+ femoral, popliteal, PT and DP pulses bilaterally, warm, well-perfused. No calf tenderness. Left foot/great toe with edema. Mild erythema to forefoot. No drainaged noted with palpation or tenderness. Right great toe: Ulcer to plantar surface of toe. fibrinous material. No drainage noted. NEUROLOGICAL: Normal speech, gait not observed. PSYCH: Cooperative. Good eye contact. Appropriate mood and affect. Vital Signs Temperature 98.3 F 08/24/18 14:00 Pulse Rate 88 08/24/18 14:00 Respiratory Rate 19 08/24/18 14:00 Blood Pressure 150/70 08/24/18 14:00 O2 Sat by Pulse Oximetry (%) 96 08/24/18 14:00 Lab Results WBC 5.2 K/mm3 (4.0-10.8) 08/23/18 06:30 RBC 5.04 M/mm3 (4.00-5.60) 08/23/18 06:30 Hgb 13.9 GM/dl (11.7-16.9) 08/23/18 06:30 Hct 42.0 % (35.4-49) 08/23/18 06:30 MCV 83.2 fl (80-96) 08/23/18 06:30 MCHC 33.0 g/dl (32.0-35.9) 08/23/18 06:30 RDW 14.4 % (11.9-15.9) 08/23/18 06:30 Plt Count 302 K/MM3 (134-434) D 08/23/18 06:30 Sodium 136 mmol/L (136-145) 08/23/18 06:30 Potassium 4.1 mmol/L (3.5-5.1) 08/23/18 06:30 Chloride 100 mmol/L (98-107) 08/23/18 06:30 Carbon Dioxide 25 mmol/L (21-32) 08/23/18 06:30 Anion Gap 11 MMOL/L (8-16) 08/23/18 06:30 BUN 11 mg/dl (7-18) 08/23/18 06:30 Creatinine 0.9 mg/dl (0.55-1.3) 08/23/18 06:30 Random Glucose 113 mg/dl (74-106) H 08/23/18 06:30 Calcium 9.0 mg/dl (8.5-10) 08/23/18 06:30 Microbiology 08/20/18 21:00 Toe - Right Hallux Gram Stain - Final 08/20/18 21:00 Toe - Left Hallux Gram Stain - Final 08/20/18 21:00 Toe - Left Hallux Wound Culture - Final Staphylococcus Coagulase Neg 08/20/18 21:05 Blood - Peripheral Venous Blood Culture - Preliminary NO GROWTH OBTAINED AFTER 72 HOURS, INCUBATION TO CONTINUE FOR 2 DAYS. 08/20/18 21:05 Blood - Peripheral Venous Blood Culture - Preliminary NO GROWTH OBTAINED AFTER 72 HOURS, INCUBATION TO CONTINUE FOR 2 DAYS. 08/20/18 21:00 Toe - Right Hallux Wound Culture - Preliminary Non Lactose Fermenting Gnb Strep Agalactiae Group B Alpha Hemolytic Streptococcus Staphylococcus Coagulase Neg Group D Strep Or Entero Coccus Dupex LE; 08/21-no evidence of bilateral DVT to LE MRI of RLE: cellulitis of the Right great toe. No abscess. Bone marrow edema ? osteomyelitis in distal phalanx MRI of LLE:Osteomyelitits of the distal great toe/soft tissue swelling. Low signal focus to the plantar aspect of the proximal phalanx CT SCAN: Left foot: diffuse tissue swelling and possible fluid collection at base of first metatarsal XRAY left foot: ?foreign body at 4th/5th metatarsal Xray right foot: A/P: Pt with bilateral chronic ulcers and acute Left great toe infection. Evidence on MRI/CT scan of an acute infection with abscess formation to the Left great toe/foot Right great toe with a question of possible osteomyelitits The patient has no vascular compromise to his lower extremities. He has no additional risk factors of smoking or diabetes. No acute surgical intervention from a vascular surgery needed. Podiatry to care for the patient with debridements/ biopsy for osteomyelitits as needed. IV antibiotics vanco/zosyn and local woudn care Case D/w. Dr. Adriano Cross and he agrees with the plan of care. Visit type - Case Type Case Type: ED Admission - Emergency Emergency Visit: No
[2018-08-24] MEDS: ATORVASTATIN CA 20 MG TABLET (FP) PO SCH (21:32)
[2018-08-25] MEDS ORDERED: DEXTROSE 5%-WATER - 50 ML IVPB ONE ×3 (04:53→21:34)
[2018-08-25] MEDS ORDERED: PIPERACILLIN/TAZOBACTAM 3.375 GM VIAL IVPB ONE ×3 (04:53→21:34)
[2018-08-25] MEDS: HEPARIN NA (PORCINE) 5,000 UNITS/ML 1ML VIAL SQ SCH ×3 (05:27→21:52)
[2018-08-25] MEDS: PARoxetine HCL 20 MG TABLET (FP) PO SCH ×3 (05:28→21:51)
[2018-08-25] MEDS: NIFEdipine E.R 60 MG TABLET (UD) PO SCH ×2 (05:28→09:44)
[2018-08-25] MEDS: PIPERACILLIN/TAZOB 3.375 GM 3.375 GM in DEXTROSE 5%-WATER - 50 ML IVPB SCH ×3 (05:28→21:50)
--- NOTE | 2018-08-25 07:44 | PN ---
Progress Note, Physician - Current Medication List Current Medications: Active Medications Atorvastatin Calcium (Lipitor -) 20 mg PO HS [facility] Last Admin: 08/24/18 21:32 Dose: 20 mg Collagenase (Santyl -) 1 applic TP DAILY [facility]; Protocol Last Admin: 08/24/18 10:02 Dose: 1 applic Heparin Sodium (Porcine) (Heparin -) 5,000 unit SQ TID [facility] Last Admin: 08/25/18 05:27 Dose: 5,000 unit Hydrochlorothiazide (Hctz -) 12.5 mg PO DAILY [facility] Last Admin: 08/24/18 10:02 Dose: 12.5 mg Vancomycin HCl 1,250 mg/ (Dextrose) 250 mls @ 250 mls/2 hr IVPB Q24H [facility]; Protocol Piperacillin Sod/Tazobactam (Sod 3.375 gm/ Dextrose) 50 mls @ 100 mls/hr IVPB Q8H [facility]; Protocol Last Admin: 08/25/18 05:28 Dose: 100 mls/hr Lisinopril (Prinivil) 10 mg PO DAILY [facility] Nifedipine (Procardia Xl -) 60 mg PO DAILY [facility] Last Admin: 08/25/18 05:28 Dose: 60 mg Paroxetine HCl (Paxil -) 20 mg PO TID [facility] Last Admin: 08/25/18 05:28 Dose: 20 mg - Objective Vital Signs: Vital Signs Temperature 97.8 F 08/25/18 06:32 Pulse Rate 84 08/25/18 06:55 Respiratory Rate 19 08/25/18 06:32 Blood Pressure 147/84 08/25/18 06:55 O2 Sat by Pulse Oximetry (%) 100 08/25/18 06:29 Labs: CBC, BMP 08/23/18 06:30 08/23/18 06:30
[2018-08-25] MEDS: COLLAGENASE CLOSTRIDIUM HIST. 30 GRAMS TUBE TP SCH (09:47)
[2018-08-25] MEDS: HYDROCHLOROTHIAZIDE 12.5 MG CAPSULE (FP) PO SCH (09:47)
[2018-08-25] MEDS: LISINOPRIL 10 MG TABLET (FP) PO SCH (09:47)
--- NOTE | 2018-08-25 09:48 | DS ---
Physical Exam: SUBJECTIVE: Patient seen and examined OBJECTIVE: Vital Signs Period Temp Pulse Resp BP Sys/Steward Pulse Ox Last 24 Hr 97.8 F-98.3 F 72-88 18-19 146-180/69-92 96-100 PHYSICAL EXAM GENERAL: The patient is awake, alert, and fully oriented, in no acute distress. HEAD: Normal with no signs of trauma. EYES: PERRL, extraocular movements intact, sclera anicteric, conjunctiva clear. ENT: Ears normal, nares patent, oropharynx clear without exudates, moist mucous membranes. NECK: Trachea midline, full range of motion, supple. LUNGS: Breath sounds equal, clear to auscultation bilaterally, no wheezes, no crackles, no accessory muscle use. HEART: Regular rate and rhythm, S1, S2 without murmur, rub or gallop. ABDOMEN: Soft, nontender, nondistended, normoactive bowel sounds, no guarding, no rebound, no hepatosplenomegaly, no masses. EXTREMITIES: 2+ pulses, warm, well-perfused, no edema. NEUROLOGICAL: Cranial nerves II through XII grossly intact. Normal speech, gait not observed. PSYCH: Normal mood, normal affect. SKIN: Warm, dry, normal turgor, no rashes or lesions noted. LABS HOSPITAL COURSE: Date of Admission:08/22/18 Date of Discharge: 08/25/18 Minutes to complete discharge: 35 Discharge Summary Reason For Visit: LT 1ST TOE CELLULITIS Current Active Problems Cellulitis of both feet (Acute) Hypertensive urgency (Acute) Condition: Stable - Instructions - Home Medications Comprehensive Discharge Medication List: Ambulatory Orders Paroxetine HCl 60 mg PO DAILY 10/11/15 This patient is new to me today: No Emergency Visit: Yes ED Registration Date: 08/22/18 Care time: The patient presented to the Emergency Department on the above date and was hospitalized for further evaluation of their emergent condition. Critical Care patient: No - Discharge Referral Referred to [facility] Med P.C.: No
--- NOTE | 2018-08-25 11:12 | PN ---
Progress Note (short form) - Note Progress Note: FUV b/l feet +om on mri, +improving cellulitis, om cellulitis grade 3 wound left Santyl to wounds. Discussed with Clau Bernal and agreed to outpatient IVABX and wound care. will follow till dc.
--- NOTE | 2018-08-25 16:31 | PN ---
Progress Note (short form) - Note Progress Note: s: no cp sob palps dizzy o: Vital Signs Period Temp Pulse Resp BP Sys/Steward Pulse Ox Last 24 Hr 97.8 F-98.3 F 72-84 18-20 142-180/69-92 99-100 nad no jvd rrr s1s2 no mrg cta bl nl eff aaox3 no le e/c/c abd nt nd pos bs no jaundice diaphoresis Current Medications Generic Name Dose Route Start Last Admin Trade Name Adan PRN Reason Stop Dose Admin Atorvastatin Calcium 20 mg 08/21/18 22:00 08/24/18 21:32 Lipitor - PO 20 mg HS [facility] Administration Collagenase 1 applic 08/23/18 11:19 08/25/18 09:47 Santyl - TP 1 applic DAILY [facility] Administration Protocol Heparin Sodium (Porcine) 5,000 unit 08/24/18 22:00 08/25/18 13:18 Heparin - SQ Not Given TID [facility] Hydrochlorothiazide 12.5 mg 08/21/18 10:00 08/25/18 09:47 Hctz - PO 12.5 mg DAILY [facility] Administration Vancomycin HCl 1,250 mg/ 250 mls @ 250 mls/2 hr 08/21/18 22:00 Dextrose IVPB Q24H [facility] Protocol Piperacillin Sod/Tazobactam 50 mls @ 100 mls/hr 08/21/18 21:00 08/25/18 13:17 Sod 3.375 gm/ Dextrose IVPB 100 mls/hr Q8H [facility] Administration Protocol Lisinopril 10 mg 08/25/18 10:00 08/25/18 09:47 Prinivil PO 10 mg DAILY [facility] Administration Nifedipine 60 mg 08/24/18 10:00 08/25/18 09:44 Procardia Xl - PO Not Given DAILY [facility] Paroxetine HCl 20 mg 08/21/18 08:15 08/25/18 13:17 Paxil - PO 20 mg TID [facility] Administration CBC, BMP 08/23/18 06:30 08/23/18 06:30 ecg: sr nl intervals no ischemic changes cxr: clear lungs echo 10/2015: mod lve, mild lvh, mild dec lvef, global hk, nl rv, carlos, mild mr, mild ao root dil a/p: 58 m hx htn, hld, cva, here with swollen and red toe. toe osteo: -has picc, abx per ID htn: -elevated on admit 2/2 med noncompliance -after starting po meds, bp much improved, cont same for now. pt instructed to f/u in office for future bp management. -prior echo showed signs of htn heart dz, would repeat echo after bp controlled , can be done as outpt cva: -found here 2015, no f/u since -cont bp control, statin hld: -cont statin cardiac gu ok for dc
--- NOTE | 2018-08-25 18:45 | PN ---
Physical Exam: SUBJECTIVE: Patient seen and examined OBJECTIVE: Vital Signs Period Temp Pulse Resp BP Sys/Steward Pulse Ox Last 24 Hr 97.8 F-98.3 F 72-84 18-20 142-180/71-92 99-100 GENERAL: The patient is awake, alert, and fully oriented, in no acute distress. LUNGS: Breath sounds equal, clear to auscultation bilaterally HEART: Regular rate and rhythm, S1, S2 ABDOMEN: Soft, nontender, nondistended RLE: Right great toe ulcer on plantar surface, dry wound bed LLE: Left great toe ulcer on plantar surface, dry wound bed; great toe swollen, no erythema, no tenderness NEUROLOGICAL: Cranial nerves II through XII grossly intact. Normal speech, gait not observed. Active Medications Generic Name Dose Route Start Last Admin Trade Name Freq PRN Reason Stop Dose Admin Atorvastatin Calcium 20 mg 08/21/18 22:00 08/24/18 21:32 Lipitor - PO 20 mg HS [facility] Administration Collagenase 1 applic 08/23/18 11:19 08/25/18 09:47 Santyl - TP 1 applic DAILY [facility] Administration Protocol Heparin Sodium (Porcine) 5,000 unit 08/24/18 22:00 08/25/18 13:18 Heparin - SQ Not Given TID [facility] Hydrochlorothiazide 12.5 mg 08/21/18 10:00 08/25/18 09:47 Hctz - PO 12.5 mg DAILY [facility] Administration Vancomycin HCl 1,250 mg/ 250 mls @ 250 mls/2 hr 08/21/18 22:00 Dextrose IVPB Q24H [facility] Protocol Piperacillin Sod/Tazobactam 50 mls @ 100 mls/hr 08/21/18 21:00 08/25/18 13:17 Sod 3.375 gm/ Dextrose IVPB 100 mls/hr Q8H [facility] Administration Protocol Lisinopril 10 mg 08/25/18 10:00 08/25/18 09:47 Prinivil PO 10 mg DAILY [facility] Administration Nifedipine 60 mg 08/24/18 10:00 08/25/18 09:44 Procardia Xl - PO Not Given DAILY [facility] Paroxetine HCl 20 mg 08/21/18 08:15 08/25/18 13:17 Paxil - PO 20 mg TID [facility] Administration Microbiology 08/20/18 21:00 Toe - Right Hallux Gram Stain - Final 08/20/18 21:00 Toe - Right Hallux Wound Culture - Final Bordetella Trematum Strep Agalactiae Group B Alpha Hemolytic Streptococcus Staphylococcus Coagulase Neg Enterococcus Avium 08/20/18 21:05 Blood - Peripheral Venous Blood Culture - Preliminary NO GROWTH OBTAINED AFTER 96 HOURS, INCUBATION TO CONTINUE FOR 1 DAYS. 08/20/18 21:05 Blood - Peripheral Venous Blood Culture - Preliminary NO GROWTH OBTAINED AFTER 96 HOURS, INCUBATION TO CONTINUE FOR 1 DAYS. 08/20/18 21:00 Toe - Left Hallux Gram Stain - Final 08/20/18 21:00 Toe - Left Hallux Wound Culture - Final Staphylococcus Coagulase Neg ASSESSMENT/PLAN 58 year-old male with a PMH significant for HTN, CVA (2016), OCD, and chronic great toe ulcers with osteomyelitis. Osteomyelitis left hallux with possible abscess --left hallux first diagnosed with osteo 10/2015, treated with ceftriaxone x 6 weeks --08/22 MRI: osteomyelitits of the distal great toe/soft tissue swelling --08/24 CT: several small fluid collections suspicious for developing abscess --polymicrobial wound culture; blood cultures NGTD --being followed by ID: continue Zosyn; will need PICC line and long-term antibiotics --seen and evaluated by vascular: no intervention, defer to podiatry --being followed by podiatry: will follow as outpatient Osteomyelitis right hallux --08/22 MRI: cellulitis and bone edema suspicious for osteo --continue Zosyn CVA --had not been taking ASA and statin at home --ASA was held for possible surgical intervention, will start today; continue statin Hypertensive urgency --poorly controlled, non-compliant, BP 211/116 on admission --continue increased nifedipine and lisinopril --continue HCTZ --check bmp in am OCD --continue Paxil FEN Fluids: PO intake adequate Electrolytes: replete as indicated Nutrition: low sodum DVT prophylaxis: subq heparin Dispo: continues to require inpatient care. Full code. Visit type - Emergency Visit Emergency Visit: Yes ED Registration Date: 08/22/18 Care time: The patient presented to the Emergency Department on the above date and was hospitalized for further evaluation of their emergent condition. - New Patient This patient is new to me today: No - Critical Care Critical Care patient: No
[2018-08-25] MEDS: ATORVASTATIN CA 20 MG TABLET (FP) PO SCH (21:51)
[2018-08-26] MEDS ORDERED: PIPERACILLIN/TAZOBACTAM 3.375 GM VIAL IVPB ONE (03:08)
[2018-08-26] MEDS ORDERED: DEXTROSE 5%-WATER - 50 ML IVPB ONE (03:08)
[2018-08-26] MEDS: PIPERACILLIN/TAZOB 3.375 GM 3.375 GM in DEXTROSE 5%-WATER - 50 ML IVPB SCH (05:34)
[2018-08-26] MEDS: HEPARIN NA (PORCINE) 5,000 UNITS/ML 1ML VIAL SQ SCH ×3 (05:34→21:35)
[2018-08-26] MEDS: PARoxetine HCL 20 MG TABLET (FP) PO SCH ×3 (05:35→21:35)
[2018-08-26] MEDS: NIFEdipine E.R 60 MG TABLET (UD) PO SCH (06:46)
[2018-08-26 08:27] LABS: ANION GAP 7 MMOL/L (8-16); BLOOD UREA NITROGEN 15 mg/dl (7-18); CALCIUM 9.4 mg/dl (8.5-10); CHLORIDE 102 mmol/L (98-107); CO2 27 mmol/L (21-32); CREATININE 0.9 mg/dl (0.55-1.3); GLUCOSE,RANDOM 115 mg/dl (74-106); POTASSIUM 4.2 mmol/L (3.5-5.1); SODIUM 136 mmol/L (136-145)
[2018-08-26] MEDS: LISINOPRIL 10 MG TABLET (FP) PO SCH (09:30)
[2018-08-26] MEDS: HYDROCHLOROTHIAZIDE 12.5 MG CAPSULE (FP) PO SCH (09:30)
[2018-08-26] MEDS: ASPIRIN COATED 81 MG TABLET.EC PO SCH (09:30)
[2018-08-26] MEDS: COLLAGENASE CLOSTRIDIUM HIST. 30 GRAMS TUBE TP SCH (09:31)
--- NOTE | 2018-08-26 12:01 | PN ---
Progress Note, Physician - Current Medication List Current Medications: Active Medications Aspirin (Ecotrin -) 81 mg PO DAILY [facility] Last Admin: 08/26/18 09:30 Dose: 81 mg Atorvastatin Calcium (Lipitor -) 20 mg PO HS [facility] Last Admin: 08/25/18 21:51 Dose: 20 mg Collagenase (Santyl -) 1 applic TP DAILY [facility]; Protocol Last Admin: 08/26/18 09:31 Dose: 1 applic Heparin Sodium (Porcine) (Heparin -) 5,000 unit SQ TID [facility] Last Admin: 08/26/18 05:34 Dose: 5,000 unit Hydrochlorothiazide (Hctz -) 12.5 mg PO DAILY [facility] Last Admin: 08/26/18 09:30 Dose: 12.5 mg Vancomycin HCl 1,250 mg/ (Dextrose) 250 mls @ 250 mls/2 hr IVPB Q24H [facility]; Protocol Piperacillin Sod/Tazobactam (Sod 3.375 gm/ Dextrose) 50 mls @ 100 mls/hr IVPB Q8H [facility]; Protocol Last Admin: 08/26/18 05:34 Dose: 100 mls/hr Lisinopril (Prinivil) 10 mg PO DAILY [facility] Last Admin: 08/26/18 09:30 Dose: 10 mg Nifedipine (Procardia Xl -) 60 mg PO DAILY [facility] Last Admin: 08/26/18 06:46 Dose: 60 mg Paroxetine HCl (Paxil -) 20 mg PO TID [facility] Last Admin: 08/26/18 05:35 Dose: 20 mg - Objective Vital Signs: Vital Signs Temperature 97.7 F 08/26/18 06:00 Pulse Rate 91 H 08/26/18 06:00 Respiratory Rate 18 08/26/18 08:20 Blood Pressure 169/93 08/26/18 06:00 O2 Sat by Pulse Oximetry (%) 98 08/26/18 08:20 Labs: CBC, BMP 08/23/18 06:30 08/26/18 07:30
[2018-08-26] MEDS: VANCOMYCIN HCL 1,500 MG in DEXTROSE 5%-WATER - 500 ML IVPB SCH (13:01)
--- NOTE | 2018-08-26 17:00 | PN ---
Physical Exam: SUBJECTIVE: Patient seen and examined OBJECTIVE: Vital Signs Period Temp Pulse Resp BP Sys/Steward Pulse Ox Last 24 Hr 97.6 F-98.6 F 86-93 16-20 130-169/60-93 98-100 GENERAL: The patient is awake, alert, and fully oriented, in no acute distress. LUNGS: Breath sounds equal, clear to auscultation bilaterally HEART: Regular rate and rhythm, S1, S2 ABDOMEN: Soft, nontender, nondistended RLE: Right great toe ulcer on plantar surface, dry wound bed LLE: Left great toe ulcer on plantar surface, dry wound bed; great toe swollen, no erythema, no tenderness NEUROLOGICAL: Cranial nerves II through XII grossly intact. Normal speech, gait not observed. Laboratory Results - last 24 hr 08/26/18 07:30 Sodium 136 Potassium 4.2 Chloride 102 Carbon Dioxide 27 Anion Gap 7 L BUN 15 Creatinine 0.9 Creat Clearance w eGFR 86.67 Random Glucose 115 H Calcium 9.4 Active Medications Generic Name Dose Route Start Last Admin Trade Name Cjq PRN Reason Stop Dose Admin Aspirin 81 mg 08/26/18 10:00 08/26/18 09:30 Ecotrin - PO 81 mg DAILY [facility] Administration Atorvastatin Calcium 20 mg 08/21/18 22:00 08/25/18 21:51 Lipitor - PO 20 mg HS [facility] Administration Collagenase 1 applic 08/23/18 11:19 08/26/18 09:31 Santyl - TP 1 applic DAILY [facility] Administration Protocol Heparin Sodium (Porcine) 5,000 unit 08/24/18 22:00 08/26/18 15:03 Heparin - SQ 5,000 unit TID [facility] Administration Hydrochlorothiazide 12.5 mg 08/21/18 10:00 08/26/18 09:30 Hctz - PO 12.5 mg DAILY [facility] Administration Vancomycin HCl 1,500 mg/ 500 mls @ 250 mls/hr 08/26/18 13:00 08/26/18 13:01 Dextrose IVPB 250 mls/hr Q24H [facility] Administration Protocol Lisinopril 10 mg 08/25/18 10:00 08/26/18 09:30 Prinivil PO 10 mg DAILY [facility] Administration Nifedipine 60 mg 08/24/18 10:00 08/26/18 06:46 Procardia Xl - PO 60 mg DAILY [facility] Administration Paroxetine HCl 20 mg 08/21/18 08:15 08/26/18 15:02 Paxil - PO 20 mg TID [facility] Administration ASSESSMENT/PLAN 08/20/18 21:00 Toe - Right Hallux Gram Stain - Final 08/20/18 21:00 Toe - Right Hallux Wound Culture - Final Bordetella Trematum Strep Agalactiae Group B Alpha Hemolytic Streptococcus Staphylococcus Coagulase Neg Enterococcus Avium 08/20/18 21:05 Blood - Peripheral Venous Blood Culture - Preliminary NO GROWTH OBTAINED AFTER 96 HOURS, INCUBATION TO CONTINUE FOR 1 DAYS. 08/20/18 21:05 Blood - Peripheral Venous Blood Culture - Preliminary NO GROWTH OBTAINED AFTER 96 HOURS, INCUBATION TO CONTINUE FOR 1 DAYS. 08/20/18 21:00 Toe - Left Hallux Gram Stain - Final 08/20/18 21:00 Toe - Left Hallux Wound Culture - Final Staphylococcus Coagulase Neg ASSESSMENT/PLAN 58 year-old male with a PMH significant for HTN, CVA (2015), OCD, and chronic great toe ulcers with osteomyelitis. Osteomyelitis left hallux with possible abscess --left hallux first diagnosed with osteo 10/2015, treated with ceftriaxone x 6 weeks --08/22 MRI: osteomyelitits of the distal great toe/soft tissue swelling --08/24 CT: several small fluid collections suspicious for developing abscess --polymicrobial wound culture; blood cultures NGTD --being followed by ID: stop Zosyn and start Vanc --PICC line placed --will need 5 weeks IV antibiotics --seen and evaluated by vascular: no intervention, defer to podiatry --seen and evaluated by podiatry: will follow as outpatient Osteomyelitis right hallux --08/22 MRI: cellulitis and bone edema suspicious for osteo --continue Vanc CVA --had not been taking ASA and statin at home --continue ASA, statin Hypertensive urgency --poorly controlled, non-compliant, BP 211/116 on admission --continue increased nifedipine and lisinopril --continue HCTZ OCD --continue Paxil FEN Fluids: PO intake adequate Electrolytes: replete as indicated Nutrition: low sodum DVT prophylaxis: subq heparin Dispo: continues to require inpatient care. Full code. Visit type - Emergency Visit Emergency Visit: Yes ED Registration Date: 08/22/18 Care time: The patient presented to the Emergency Department on the above date and was hospitalized for further evaluation of their emergent condition. - New Patient This patient is new to me today: No - Critical Care Critical Care patient: No
[2018-08-26] MEDS: ATORVASTATIN CA 20 MG TABLET (FP) PO SCH (21:35)
[2018-08-27] MEDS: PARoxetine HCL 20 MG TABLET (FP) PO SCH ×2 (06:39→15:02)
[2018-08-27] MEDS: HEPARIN NA (PORCINE) 5,000 UNITS/ML 1ML VIAL SQ SCH ×2 (06:39→15:03)
[2018-08-27] MEDS: HYDROCHLOROTHIAZIDE 12.5 MG CAPSULE (FP) PO SCH (09:21)
[2018-08-27] MEDS: ASPIRIN COATED 81 MG TABLET.EC PO SCH (09:21)
[2018-08-27] MEDS: LISINOPRIL 10 MG TABLET (FP) PO SCH (09:21)
[2018-08-27] MEDS: NIFEdipine E.R 60 MG TABLET (UD) PO SCH (09:21)
[2018-08-27] MEDS: COLLAGENASE CLOSTRIDIUM HIST. 30 GRAMS TUBE TP SCH (09:24)
--- NOTE | 2018-08-27 09:27 | PN ---
Progress Note, Physician History of Present Illness: stable no new issues no complaints - Current Medication List Current Medications: Active Medications Aspirin (Ecotrin -) 81 mg PO DAILY [facility] Last Admin: 08/27/18 09:21 Dose: 81 mg Atorvastatin Calcium (Lipitor -) 20 mg PO HS [facility] Last Admin: 08/26/18 21:35 Dose: 20 mg Collagenase (Santyl -) 1 applic TP DAILY [facility]; Protocol Last Admin: 08/27/18 09:24 Dose: 1 applic Heparin Sodium (Porcine) (Heparin -) 5,000 unit SQ TID [facility] Last Admin: 08/27/18 06:39 Dose: 5,000 unit Hydrochlorothiazide (Hctz -) 12.5 mg PO DAILY [facility] Last Admin: 08/27/18 09:21 Dose: 12.5 mg Vancomycin HCl 1,500 mg/ (Dextrose) 500 mls @ 250 mls/hr IVPB Q24H [facility]; Protocol Last Admin: 08/26/18 13:01 Dose: 250 mls/hr Lisinopril (Prinivil) 10 mg PO DAILY [facility] Last Admin: 08/27/18 09:21 Dose: 10 mg Nifedipine (Procardia Xl -) 60 mg PO DAILY [facility] Last Admin: 08/27/18 09:21 Dose: 60 mg Paroxetine HCl (Paxil -) 20 mg PO TID [facility] Last Admin: 08/27/18 06:39 Dose: 20 mg - Objective Vital Signs: Vital Signs Temperature 98.0 F 08/27/18 06:00 Pulse Rate 84 08/27/18 09:23 Respiratory Rate 18 08/27/18 09:23 Blood Pressure 160/73 08/27/18 09:23 O2 Sat by Pulse Oximetry (%) 100 08/27/18 09:23 Constitutional: Yes: No Distress, Calm, Obese Cardiovascular: Yes: Regular Rate and Rhythm Respiratory: Yes: Regular, CTA Bilaterally Musculoskeletal: Yes: WNL Extremities: Yes: Other Wound/Incision: Yes: Dressing Dry and Intact Neurological: Yes: Alert, Oriented Psychiatric: Yes: Alert, Oriented Labs: CBC, BMP 08/23/18 06:30 08/26/18 07:30 Assessment/Plan 58 year-old male with a PMH significant for HTN, CVA (2016), OCD, and chronic great toe ulcers with osteomyelitis. Osteomyelitis left hallux with possible abscess Osteomyelitis right hallux CVA Hypertensive urgency OCD plan we will continue vanco all results noted wound care will need vanco trough before the 4th dose with cbc bmp esr and crp weekly rest as per the team
[2018-08-27] MEDS: VANCOMYCIN HCL 1,500 MG in DEXTROSE 5%-WATER - 500 ML IVPB SCH (12:36)
[2018-08-27 14:29] VITALS: BP 132/77; PULSE 91; TEMP 97.7
--- NOTE | 2018-08-27 14:32 | DS ---
Physical Exam: SUBJECTIVE: Patient seen and examined OBJECTIVE: Vital Signs Period Temp Pulse Resp BP Sys/Steward Pulse Ox Last 24 Hr 97.5 F-98.3 F 84-97 16-18 132-160/72-88 98-100 PHYSICAL EXAM GENERAL: The patient is awake, alert, and fully oriented, in no acute distress. HEAD: Normal with no signs of trauma. EYES: PERRL, extraocular movements intact, sclera anicteric, conjunctiva clear. ENT: Ears normal, nares patent, oropharynx clear without exudates, moist mucous membranes. NECK: Trachea midline, full range of motion, supple. LUNGS: Breath sounds equal, clear to auscultation bilaterally, no wheezes, no crackles, no accessory muscle use. HEART: Regular rate and rhythm, S1, S2 without murmur, rub or gallop. ABDOMEN: Soft, nontender, nondistended, normoactive bowel sounds, no guarding, no rebound, no hepatosplenomegaly, no masses. EXTREMITIES: 2+ pulses, warm, well-perfused, no edema. NEUROLOGICAL: Cranial nerves II through XII grossly intact. Normal speech, gait not observed. PSYCH: Normal mood, normal affect. SKIN: Warm, dry, normal turgor, no rashes or lesions noted. LABS Laboratory Results - last 24 hr 08/27/18 06:30 Random Vancomycin 5.5 L HOSPITAL COURSE: Date of Admission:08/22/18 Date of Discharge: 08/27/18 Minutes to complete discharge: 35 Discharge Summary Reason For Visit: LT 1ST TOE CELLULITIS Current Active Problems Cellulitis of both feet (Acute) Hypertensive urgency (Acute) Condition: Improved - Instructions Diet, Activity, Other Instructions: You have been diagnosed with osteomyelitis of your toe and you five weeks of antibiotic therapy. You have a PICC line and arrangements have been made for you to receive daily infusions of vancomycin, an antibiotic, at home. Dr. Duggan will be managing your infusion therapy. Four prescriptions have been sent to your pharmacy: 1. Aspirin 2. Lipitor 3. Nifedipine 4. Lisinopril It is recommended you take these medications as directed every day. You should follow up with Dr. Puente (soda drier feeder) and with Dr. Duggan ( infectious disease). Their contact information is enclosed in this discharge packet. You indicated you have an appointment next week with Dr. Evette Cruz and she will be your primary care provider. Return to the emergency department for any new or worsening symptoms. Referrals: Karen Duggan MD [Staff Physician] - 1 Month Chelsi Puente DPM [Staff Physician] - 1 Week Disposition: HOME - Home Medications Comprehensive Discharge Medication List: Ambulatory Orders Paroxetine HCl 60 mg PO DAILY 10/11/15 Aspirin Coated [Ecotrin -] 81 mg PO DAILY #30 tablet.ec 08/26/18 Atorvastatin Ca [Lipitor] 20 mg PO HS #30 tablet 08/26/18 Hydrochlorothiazide [Hctz -] 12.5 mg PO DAILY cap 08/26/18 Lisinopril [Prinivil] 10 mg PO DAILY #30 tablet 08/26/18 Nifedipine ER [Procardia XL -] 60 mg PO DAILY #30 tab.er.[id number] 08/26/18 This patient is new to me today: No Emergency Visit: Yes ED Registration Date: 08/22/18 Care time: The patient presented to the Emergency Department on the above date and was hospitalized for further evaluation of their emergent condition. Critical Care patient: No - Discharge Referral Referred to [facility] Med P.C.: No
== END 2018-08-27 15:20 | disposition home or self-care (01) | DRG 638 ==
LOC: FER 20:29 → FM/S 22:38 → OBSVTOIN 08-22 12:07
PROVIDERS: ADMIT Internal Medicine; ATTEND Nurse Practitioner Acute Care
DX: E11.621 Type 2 diabetes mellitus with foot ulcer (principal); L03.116 Cellulitis of left lower limb; L03.115 Cellulitis of right lower limb; M86.9 Osteomyelitis, unspecified; E11.69 Type 2 diabetes mellitus with other specified complication; B95.2 Enterococcus as the cause of diseases classified elsewhere; B95.7 Other staphylococcus as the cause of diseases classified elsewhere; L97.529 Non-pressure chronic ulcer of other part of left foot with unspecified severity; L03.032 Cellulitis of left toe; I16.0 Hypertensive urgency; I10 Essential (primary) hypertension; Z91.14 Patient's other noncompliance with medication regimen; F42.9 Obsessive-compulsive disorder, unspecified; Z86.73 Personal history of transient ischemic attack (TIA), and cerebral infarction without residual deficits; E66.9 Obesity, unspecified; Z68.32 Body mass index [BMI] 32.0-32.9, adult; E78.5 Hyperlipidemia, unspecified
CPT/HCPCS: 36415; 36569; 71045-TC-FY; 73630-TC-LT; 73630-TC-RT-FY; 73702-TC-RT; 73718-TC-LT; 73718-TC-RT; 76775-TC; 77001-TC-FY; 80048; 80053; 82550; 83605; 84484; 85025; 85651; 86140; 87040; 87070; 87077; 87186; 87205; 93005; 93970-TC; 99283-25; C1751; G0378; G0480; J0735; J1644